=== PATIENT | male | born 1955 | race Caucasian/White ===

== ENCOUNTER → 2021-02-06 | Outpatient (CLI) | payer OTHER ==
[~2021-02-06] MED LIST: ATOR80TA59 PO; D31000TA2 PO; HYDR-3716 PO; LISI40TA4 PO; MELO15TA28 PO; NARC1SPR; OMEP1CAP73 PO; VITMTA PO
== END ==
LOC: M LABSMTC 12:05
PROVIDERS: ATTEND Anesthesiology
DX: Z01.812 Encounter for preprocedural laboratory examination (principal)

== ENCOUNTER → 2021-02-15 | Outpatient (CLI) | payer OTHER | LOC: M LABSMTC 12:23 | PROVIDERS: ATTEND Anesthesiology | DX: Z01.812 Encounter for preprocedural laboratory examination (principal) ==

== ENCOUNTER → 2021-02-20 | Day surgery (SDC) | payer OTHER ==
[~2021-02-20] VITALS: Ht 187.3 cm; Wt 107.0 kg
[~2021-02-20] MED LIST changes: +LIDOCAINE 2% 100MG/5ML SDV (FOR ANES.) As Ordered ONE; +NS 1,000 ML IV ONE; +propofoL 200 MG/20 ML VIAL As Ordered ONE
== END | disposition home or self-care (01) ==
LOC: EDUNIT# 02-11 12:30 → M OPP 12:20
PROVIDERS: ATTEND Internal Medicine Gastroenterology
DX: Z86.010 Personal history of colon polyps (principal); Z53.21 Procedure and treatment not carried out due to patient leaving prior to being seen by health care provider